=== PATIENT | female | born 1960 | race Hispanic/Latino ===

== ENCOUNTER 2016-10-19 12:51 | Inpatient (IN) | payer OTHER ==
[2016-10-19 14:06] LABS: Basophils % (Auto) 1.3 % (0.0-1.8); Eosinophils % (Auto) 2.3 % (0.0-4.3); Mean Corpuscular HGB Conc 28 % (30-34); Platelet Count 360 K/mm3 (140-440); Red Blood Count 4.59 M/mm3 (3.65-5.03); White Blood Count 6.5 K/mm3 (4.5-11.0)
[2016-10-19 14:07] LABS: Hematocrit 27.7 % (30.3-42.9); Hemoglobin 7.8 gm/dl (10.1-14.3); Mean Corpuscular Hemoglobin 17 pg (28-32); Mean Corpuscular Volume 60 fl (79-97); Red Cell Distribution Width 24.3 % (13.2-15.2)
[2016-10-19 14:09] LABS: Partial Thromboplastin Time 35.2 Sec. (24.2-36.6)
[2016-10-19 14:15] LABS: Creatine Kinase MB 1.7 ng/mL (0.0-4.0)
[2016-10-19 14:16] LABS: Alanine Aminotransferase 6 units/L (7-56); Albumin 3.8 g/dL (3.9-5); Albumin/Globulin Ratio 1.4 %; Alkaline Phosphatase 87 units/L (35-129); Anion Gap 22 mmol/L; Bilirubin,Total 0.3 mg/dL (0.1-1.2); Blood Urea Nitrogen 7 mg/dL (7-17); Calcium 8.7 mg/dL (8.4-10.2); Carbon Dioxide 20 mmol/L (22-30); Chloride 104.6 mmol/L (98-107); Creatine Kinase 40 units/L (30-135); Glucose 93 mg/dL (65-100); Potassium 3.5 mmol/L (3.6-5.0); Sodium 143 mmol/L (137-145); Total Protein 6.6 g/dL (6.3-8.2)
[2016-10-19] MEDS ORDERED: CARDIZEM IV ONE ×2 (14:26→15:41)
[2016-10-19] MEDS ORDERED: CARDIZEM/D5W 100MG/100ML 100 MG/100 ML BAG IV ONE (14:26)
[2016-10-19] MEDS ORDERED: BABY ASPIRIN PO ONE (14:32)
--- NOTE | 2016-10-19 14:32 | Emergency Department Report ---
HPI - General Chief Complaint: Arrhythmia/Palpitations Time Seen by Provider: 10/19/16 14:05 - HPI HPI: The patient is a 56-year-old female with a long-standing history of tobacco use , who presents for evaluation of chest pain. The patient reports 1 day of on and off chest pain, midsternal in location, pounding in quality, and associated with moderate in severity dyspnea, exacerbated with walking and exertion, improved with rest, worsened from baseline for the past one day. The patient denies trauma to the chest, fever, syncopal, hemoptysis, unilateral leg swelling , recent immobilization, history of DVT or PE, recent cancer. ED Past Medical Hx - Past Medical History Additional medical history: seizures - Surgical History Hx Appendectomy: Yes Additional Surgical History: brain blood clots removed, 2 c-sections - Social History Smoking Status: Never Smoker Substance Use Type: Alcohol - Medications Home Medications: Home Medications Medication Instructions Recorded Confirmed Last Taken Type Aspirin 81 mg PO QDAY 10/19/16 10/19/16 Unknown History ED Review of Systems ROS: Stated complaint: COUGH Other details as noted in HPI Constitutional: denies: fever ENT: denies: throat or neck pain Respiratory: denies: cough reports shortness of breath Cardiovascular: reports chest pain Endocrine: denies unexplained weight loss or gain Gastrointestinal: denies: abdominal pain, nausea Genitourinary: denies: dysuria Musculoskeletal: denies: leg swelling Skin: denies: rash Neurological: denies: headache Hematological/Lymphatic: denies: easy bleeding or easy bruising Psych: denies sadness or hopelessness Physical Exam - Physical Exam Vital Signs: Vital Signs 10/19/16 10/19/16 13:26 14:22 Temperature 98.6 F Pulse Rate 75 150 H Respiratory 18 16 Rate Blood Pressure 134/80 Blood Pressure 148/95 [Right] O2 Sat by Pulse 100 99 Oximetry Physical Exam: General: well-nourished, well-developed, no acute distress Head: Normocephalic, atraumatic Eyes: normal sclera ENT: Mucous membranes are pink and moist Neck: trachea midline, neck supple, No neck stiffness, no cervical adenopathy Respiratory: Mildly diminished apical breath sounds bilaterally Cardio: S1 and S2 present, no murmurs, rubs, gallops, capillary refill is brisk Abdomen: Normoactive bowel sounds, soft abdomen, no rigidity, no guarding or rebound tenderness Musc: No pitting edema Skin: No rash Neuro: no facial drooping, normal speech Psych: Normal affect ED Course Vital Signs 10/19/16 10/19/16 13:26 14:22 Temperature 98.6 F Pulse Rate 75 150 H Respiratory 18 16 Rate Blood Pressure 134/80 Blood Pressure 148/95 [Right] O2 Sat by Pulse 100 99 Oximetry ED Medical Decision Making - Lab Data Result diagrams: 10/19/16 13:38 10/19/16 13:38 - Medical Decision Making The patient was seen and examined by myself. The patient is placed on a cardiac surgeon and continuous pulse ox. On initial evaluation, the patient was found to be in no distress. Evaluation orders were placed. EKG exhibits narrow complex QRS tachycardia, irregularly irregular rhythm, no P waves, Heart rate 125, consistent with atrial fibrillation with RVR. The patient is given IV morphine for pain, and IV Cardizem bolus for treatment of A. fib. The patient is also started on a Cardizem drip. Multiple bedside assessments were performed to assess patient heart rate responsiveness to antiarrhythmic. Lab results reveal low hemoglobin of 7.8, elevated BNP 900, and normal troponin level. The on-call security system sales consultant was contacted. They agreed to present to the emergency department and evaluated the patient. The on-call hospitalist service was contacted. They agreed to admit the patient for further treatment and close monitoring. The ED admit order was placed. The patient was admitted in guarded condition. Critical Care Time: Yes Critical care time in (mins) excluding proc time.: 35 (35) Critical care attestation.: Due to the critical nature of this patients presentation, which necessitated multiple bedside assessments, manipulation and supportive measures to prevent further life threatening deterioration, I would like to bill for a total of 35 minutes of critical care time. This was exclusive of any separately billable procedures. Critical Care Time: 35 ED Disposition Clinical Impression: Atrial fibrillation with rapid ventricular response, Acute chest pain, Microcytic anemia Disposition: OP ADMITTED IP TO THIS HOSP Is pt being admited?: Yes Does the pt Need Aspirin: Yes Condition: Critical Time of Disposition: 14:27
[2016-10-19] MEDS ORDERED: TESSALON PERLES PO ONE (14:35)
[2016-10-19] MEDS ORDERED: MORPHINE IV ONE (14:35)
--- NOTE | 2016-10-19 14:38 | Admit Criteria Form ---
Admission Criteria Documentation: ATRIAL FIBRILLATION Clinical Indications for Admission to Inpatient Care (Place 'X' for any and all applicable criteria): Admission indicated for ANY ONE of the following(1)(2)(3)(4)(5) : [ ]I. Myocardial ischemia [X]II. Dyspnea or hypoxemia [ ]III. Hemodynamic instability [ ]IV. Heart failure (e.g., pulmonary edema) (7) [ ]V. New-onset (less than 48 hours) atrial fibrillation with high risk for causing complications secondary to comorbidities (eg, symptomatic heart failure ) [ ]. Altered mental status [ ]VII. Syncope [ ]VIII. Patient has implantable cardioverter defibrillator that has fired more than once within past 24hr or needs immediate adjustment of settings that cannot be done other than in inpatient setting. (8) [ ]IX. Suspected accessory pathway (e.g., Niznw-Tjejmsibu-Iellp syndrome) on ECG [ ]X. Recent systemic thromboembolism (eg, stroke) [ ]XI. Medication toxicity (e.g., digitalis) causing arrhythmia(9) [ ]XII. Underlying medical condition that necessitates inpatient care (e.g., thyrotoxicosis, pneumonia) (10) [ ]XIII. Continuous ECG monitoring is required for condition causing arrhythmia (e.g., severe hyperkalemia, hypokalemia, acid-base disturbance).(11)(12)(13) [ ]XIV. Initiation of antiarrhythmic drug therapy is needed in patient at high risk of adverse effects as indicated by ANY ONE of the following: [ ]a) Significant structural heart disease (e.g., reduced ejection fraction, congenital heart disease, valvular heart disease) [ ]b) Prolonged QT interval [ ]c) Underlying sinus node or atrioventricular conduction disturbances [ ]d) Need for treatment with antiarrhythmic drugs that have significant proarrhythmic potential (e.g., dofetilide, sotalol, procainamide) [ ]e) Patient whose sinus rhythm has never been observed on ECG [ ]XV. Intolerable symptoms despite optimal outpatient treatment [ ]XVI. Elective or urgent cardioversion that cannot be performed on outpatient basis or during observation care. [A] (Use also Atrial Fibrillation: Observation Care ) as appropriate.(14) [ ]XVII.Contraindications and/or Inappropriate clinical situations for Observational Care in patients with Atrial Fibrillation, when ANY ONE of the following is required: [ ]a) Patient with High risk of cardiac embolism (e.g, patients with previous cardiac embolism, LVEF < 40%, age >75 and patients with prosthetic valve) 18 [ ]b) Patient with Moderate risk including DM patient, CAD and patient aged 65-75 18 [ ]c) Patient with any change in cardiac biomarker especially troponin should be managed as high risk in an inpatient setting 19 [ ]d) Physician judgement irrespective of ECG and other diagnostic findings 20 [ ]XVIII.General contraindications and/or Inappropriate clinical situations for Observational Care in patients with Atrial Fibrillation, when ANY ONE of the following is required: [ ]a) Prediction of prolongation of LOS based on ANY ONE of the following may be considered as a contraindication for observational care 2, 3, 4, 5, 6, 7, 8, 9, 10, 11 [ ]i) Age > 65 yrs. [ ]ii) Patient arriving by ambulance [ ]iii) Patient with high acuity [ ]iv) Patient requiring vital sign monitoring [ ]v) Patient on IV medication [ ]b) Systolic blood pressures 180mmHg 3,12 [ ]c) Patient with altered mental status including delirium and other alteration of consciousness3 [ ]d) Patient whose discharge disposition will be to a shelter home or rehabilitation home should not be managed in Emergency Department Observation Unit. CMS rule requires 3 days hospital stay before such placement.3,13 [ ]e) Patient with failure to thrive due to broad array of etiologies 3,16,17 [ ]f) Inability to ambulate 3,14 Extended stay beyond goal length of stay may be needed for (1)(25)(26): [ ]a) Unstable comorbidities [ ]b) Persistently uncontrolled atrial fibrillation or other arrhythmias [ ]c) Acute thromboembolic event (e.g., stroke, limb ischemia) [ ]d) Need for inpatient attainment of full anticoagulation The original [employer] content created by [employer] has been revised. The portions of the content which have been revised are identified through the use of italic text or in bold, and [facility] has neither reviewed nor approved the modified material. All other unmodified content is copyright [employer] Please see references footnoted in the original [employer] edition 2016 Admission Criteria Met: Yes
[2016-10-19] MEDS ORDERED: BENADRYL ONE (14:45)
[2016-10-19] MEDS ORDERED: BENADRYL IV ONE (15:41)
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
[2016-10-19] MEDS ORDERED: SENOKOT PO PRN (16:15)
[2016-10-19] MEDS ORDERED: MILK OF MAGNESIA PO PRN (16:15)
[2016-10-19] MEDS ORDERED: DULCOLAX PR PRN (16:15)
[2016-10-19] MEDS ORDERED: TYLENOL PO PRN (16:15)
[2016-10-19] MEDS ORDERED: ZOFRAN IV PRN (16:15)
[2016-10-19] MEDS ORDERED: K-DUR PO ONE ×2 (16:40→17:00)
[2016-10-19] MEDS: CARDIZEM PO SCH (16:43)
[2016-10-19 17:22] LABS: Iron 19 ug/dL (37-170); Total Iron Binding Capacity 408 mcg/dL (250-450)
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
[2016-10-19] MEDS: DUONEB 0.5 MG-3 MG/3 ML SOLN IH SCH (19:53)
[2016-10-19] MEDS: KEPPRA PO SCH (21:33)
[2016-10-19] MEDS: PEPCID PO SCH (21:33)
[2016-10-19] MEDS: HEPARIN SUB-Q SCH (21:33)
[2016-10-19] MEDS ORDERED: LOPRESSOR PO SCH (22:00)
[2016-10-20] MEDS: CARDIZEM PO SCH ×3 (00:18→10:50)
[2016-10-20] MEDS: K-DUR PO SCH ×2 (00:18→10:50)
[2016-10-20] MEDS: HEPARIN SUB-Q SCH (05:06)
[2016-10-20 07:57] LABS: Anion Gap 17 mmol/L; Blood Urea Nitrogen 11 mg/dL (7-17); Calcium 8.7 mg/dL (8.4-10.2); Carbon Dioxide 23 mmol/L (22-30); Chloride 106.4 mmol/L (98-107); Glucose 80 mg/dL (65-100); Potassium 4.2 mmol/L (3.6-5.0); Sodium 142 mmol/L (137-145)
--- NOTE | 2016-10-20 08:07 | XRay Report ---
PORTABLE CHEST INDICATION: Chest pain. COMPARISON: 11/18/2009 FINDINGS: Portable, frontal chest radiograph now demonstrates slightly crowded markings toward the bases. Normal cardiomediastinal silhouette. Slight aortic knob calcification. No large pleural effusions or CHF. EKG leads. Unremarkable bones. CONCLUSION: No significant acute chest process, as described. Thank you for the opportunity to participate in this patient's care.
[2016-10-20 09:08] VITALS: BP 152/80
[2016-10-20 09:09] LABS: Basophils % (Auto) 2.4 % (0.0-1.8); Mean Corpuscular HGB Conc 27 % (30-34); Platelet Count 330 K/mm3 (140-440); Red Blood Count 4.17 M/mm3 (3.65-5.03); White Blood Count 5.1 K/mm3 (4.5-11.0)
[2016-10-20] MEDS: DUONEB 0.5 MG-3 MG/3 ML SOLN IH SCH ×2 (09:42→09:43)
[2016-10-20 09:52] LABS: Hematocrit 26.3 % (30.3-42.9); Hemoglobin 7.2 gm/dl (10.1-14.3); Mean Corpuscular Hemoglobin 17 pg (28-32); Mean Corpuscular Volume 63 fl (79-97); Red Cell Distribution Width 24.3 % (13.2-15.2)
[2016-10-20] MEDS: KEPPRA PO SCH (10:50)
[2016-10-20] MEDS: PEPCID PO SCH (10:50)
--- NOTE | 2016-10-20 11:39 | Progress Note ---
Assessment and Plan Atrial fibrillation, spontaneously reverted to sinus rhythm on oral cardizem for suppression TSH 4.1 Anemia Tobacco abuse Hx of brain bleed s/t trauma requiring brain surgery Recommend: Outpatient event monitor. Advised dietary/fluid restrictions. Ok, cardiac miller, for discharge home today. F/U with [facility] November 10 at 210p. Subjective Date of service: 10/20/16 Interval history: Patient is in a stable sinus rhythm on telemetry. Patient denies palpitations, chest pain and shortness of breath. Objective Vital Signs Temp Pulse Pulse Pulse Resp Resp BP 10/20/16 09:07 97.7 F 71 18 10/20/16 05:10 65 130/67 10/20/16 05:05 18 10/20/16 04:57 72 10/20/16 04:40 98.1 F 65 20 10/20/16 02:00 97.7 F 73 20 10/19/16 21:39 97.9 F 72 20 10/19/16 20:10 87 18 10/19/16 17:17 72 10/19/16 17:16 72 18 10/19/16 16:43 69 104/66 10/19/16 16:13 98.3 F 72 16 10/19/16 15:38 72 18 10/19/16 14:58 97 H 18 10/19/16 14:53 144 H 18 BP BP Pulse Ox 10/20/16 09:07 152/80 97 10/20/16 05:10 10/20/16 05:05 10/20/16 04:57 10/20/16 04:40 130/67 97 10/20/16 02:00 118/62 94 10/19/16 21:39 123/70 10/19/16 20:10 10/19/16 17:17 10/19/16 17:16 166/66 99 10/19/16 16:43 10/19/16 16:13 97/64 97 10/19/16 15:38 111/67 99 10/19/16 14:58 109/68 97 10/19/16 14:53 105/61 99 - Physical Examination General: No Apparent Distress HEENT: Positive: PERRL Neck: Positive: trachea midline Cardiac: Positive: Reg Rate and Rhythm Lungs: Positive: Decreased Breath Sounds Neuro: Positive: Grossly Intact Extremities: Absent: edema - Labs and Meds CBC 10/20/16 Range/Units 08:20 WBC 5.1 (4.5-11.0) K/mm3 RBC 4.17 (3.65-5.03) M/mm3 Hgb 7.2 L (10.1-14.3) gm/dl Hct 26.3 L (30.3-42.9) % Plt Count 330 (140-440) K/mm3 Lymph # 1.5 (1.2-5.4) K/mm3 [place] # 0.5 (0.0-0.8) K/mm3 Eos # 0.2 (0.0-0.4) K/mm3 Baso # 0.1 (0.0-0.1) K/mm3 Comprehensive Metabolic Panel 10/20/16 Range/Units 06:41 Sodium 142 (137-145) mmol/L Potassium 4.2 (3.6-5.0) mmol/L Chloride 106.4 (98-107) mmol/L Carbon Dioxide 23 (22-30) mmol/L BUN 11 (7-17) mg/dL Creatinine 0.5 L (0.7-1.2) mg/dL Glucose 80 (65-100) mg/dL Calcium 8.7 (8.4-10.2) mg/dL
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
== END 2016-10-20 13:22 | disposition home or self-care (01) | DRG 310 ==
LOC: ED 12:51 → 4A 14:33
PROVIDERS: ADMIT Internal Medicine; ATTEND Internal Medicine
DX: I48.91 Unspecified atrial fibrillation (principal); G40.909 Epilepsy, unspecified, not intractable, without status epilepticus; D64.9 Anemia, unspecified; E87.6 Hypokalemia; J42 Unspecified chronic bronchitis; F17.210 Nicotine dependence, cigarettes, uncomplicated; Z90.49 Acquired absence of other specified parts of digestive tract; Z71.6 Tobacco abuse counseling; Z79.899 Other long term (current) drug therapy; Z98.890 Other specified postprocedural states
CPT/HCPCS: 36415; 71010; 80048; 80053; 82550; 82553; 82607; 82728; 83550; 83880; 84436; 84439; 84443; 84484; 85025; 85610; 85730; 93005; 93010; 93306; 94640; J1200; J1644; J2270